=== PATIENT | female | born 1955 | race Caucasian/White ===

== ENCOUNTER 2019-11-02 04:28 | Emergency (ER) | payer BC, OTHER ==
--- OUTSIDE RECORDS SUMMARY | 2019-11-02 04:30 | XMS REPORT ---
:1955 [facility] Address [address] [place] [address] Care Team Providers Name Role Phone Unavailable Unavailable Unavailable Problems This patient has no known problems. Allergies, Adverse Reactions, Alerts This patient has no known allergies or adverse reactions. Medications This patient has no known medications. Results Test Description Test Time Test Comments Text Results Atomic Results Result Comments SCR MAMM BILATERAL TANIYA 2019-05-29 12:49:08 - SCR MAMM BILATERAL TANIYA CAD CAD JUAN DIGITALBILATERAL DIGITAL SCREENING MAMMOGRAM 3D/2D WITH CAD: 05/28/2019CLINICAL: Asymptomatic. Digital breast tomosynthesis was performed in addition to routine CC and MLO views. Current mammographic images were evaluated by either a Sarbari M-Vu or a [employer] ImageChecker CAD (computer aided detection system). No prior exams were available for comparison. The tissue of both breasts is predominantly fatty. No suspicious mass, architectural distortion, malignant type calcification, or lymph node abnormality detected. IMPRESSION: NEGATIVEThere is no mammographic evidence of malignancy. Resume annual screening mammography in one year. Trinidad Cruz M.D. yageronimo/penrad:05/29/2019 12:49:08 Wardrobe Image Consultant: Brandi Dumont MM, [facility] Mammographyletter sent: BIRADS 1-2 Normal Mammogram BI-RADS: 1 Negative SCR MAMM BILATERAL TANIYA 2019-05-29 12:49:08 AMENDMENT: 07/11/2019 Gonzales Tadeo M.D. Prior exams received and reviewed. There is no significant change.Amended BI-RADS: 1 Negative letter sent: Normal Comparison Completed
[2019-11-02] MEDS ORDERED: NA CHLORIDE 0.9% 1,000 ML ONE (04:47)
[2019-11-02 05:00] LABS: Absolute Lymphocytes (CBC) 2.1 K/uL (0.7-4.9); Basophils % 1.2 % (0-1.3); Hematocrit 40.7 % (36.0-45.0); Lymphocytes % 28.3 % (15.3-44.8); MPV 9.5 fL (7.6-11.3); RBC Red Blood Cell Count 4.77 M/uL (3.86-4.86)
[2019-11-02 05:17] LABS: ALT/SGPT 25 U/L (12-78); AST/SGOT 19 U/L (15-37); Albumin 3.5 g/dL (3.4-5.0); Alkaline Phosphatase 87 U/L (45-117); BUN Blood Urea Nitrogen 22 mg/dL (7-18); Bicarbonate 27 mmol/L (21-32); Bilirubin Direct < 0.1 mg/dL (0-0.2); Bilirubin Total 0.2 mg/dL (0.2-1.0); Glucose Level 111 mg/dL (74-106); Magnesium 2.1 mg/dL (1.8-2.4); NT PRO-BNP 61 pg/mL (<125); Potassium 3.9 mmol/L (3.5-5.1); Protein, Total 7.5 g/dL (6.4-8.2); Sodium Level 141 mmol/L (136-145); Troponin (Emerg Dept Use Only) < 0.02 ng/mL (0.0-0.045)
[2019-11-02] MEDS ORDERED: LORazepam 2 MG/ML VIAL ONE ×2 (06:01→06:20)
--- NOTE | 2019-11-02 07:12 | RAD REPORT ---
EXAM DESCRIPTION: CT - Chest For Pe Angio - 11/02/2019 6:49 am CLINICAL HISTORY: sob COMPARISON: None. TECHNIQUE: Dynamically enhanced axial 3 mm thick images of the chest were obtained during administra tion of <100> mL Isovue 370 IV contrast. Coronal and oblique reconstruction images were generated and reviewed. Exam utilizes a protocol for optimal evaluation of pulmonary arterial tree. Maximum intensity projections 3D imaging was utilized All CT scans are performed using dose optimization technique as appropriate and may include automated exposure control or mA/KV adjustment according to patient size. FINDINGS: A pulmonary embolus is not seen. A thoracic aortic aneurysm is not noted. A pleural effusion is not seen. A pericardial effusion is not seen. A lung consolidation is not present. IMPRESSION: Negative for a pulmonary embolism.
--- NOTE | 2019-11-02 07:24 | EDPHYS ---
Physician Documentation [facility] Name: Mary Berry Age: 64 yrs Sex: Female : 1955 Arrival Date: 11/02/2019 Time: 04:30 Bed 6 Private MD: ED Physician Doroteo Rodriguez HPI: 11/01 04:40 This 64 yrs old Female presents to ER via Unassigned with complaints of alex Shortness Of Breath. 04:40 The patient has shortness of breath at rest, with light activity. Onset: The alex symptoms/episode began/occurred just prior to arrival. Duration: The symptoms are continuous, but are steadily getting better. The patient's shortness of breath has no apparent modifying factors. Associated signs and symptoms: The patient has no apparent associated signs or symptoms. Severity of symptoms: At their worst the symptoms were moderate in the emergency department the symptoms have improved moderately. The patient has not experienced similar symptoms in the past. Historical: - Allergies: 05:04 Sulfa (Sulfonamide Antibiotics); - Home Meds: 05:04 Famciclovir Oral [Active]; meloxicam oral oral [Active]; Acetaminophen-Codeine Oral ah [Active]; levothyroxine oral [Active]; loratadine oral oral [Active]; - PMHx: 05:04 Hypothyroidism; ah - PSHx: 05:04 Cholecystectomy; Appendectomy; Tonsillectomy; ah - Immunization history:: Pneumococcal vaccine is not up to date, Flu vaccine is not up to date. It has been more than one year since last vaccine. - Social history:: Smoking status: Patient denies any tobacco usage or history of. Patient uses alcohol, on a daily basis. - Family history:: not pertinent. ROS: 04:41 Constitutional: Negative for fever, chills, and weight loss, Eyes: Negative for injury, alex pain, redness, and discharge, ENT: Negative for injury, pain, and discharge, Neck: Negative for injury, pain, and swelling, Cardiovascular: Negative for chest pain, palpitations, and edema, Abdomen/GI: Negative for abdominal pain, nausea, vomiting, diarrhea, and constipation, Back: Negative for injury and pain, : Negative for injury, bleeding, discharge, and swelling, MS/Extremity: Negative for injury and deformity, Skin: Negative for injury, rash, and discoloration, Neuro: Negative for headache, weakness, numbness, tingling, and seizure, Psych: Negative for depression, anxiety, suicide ideation, homicidal ideation, and hallucinations, Allergy/Immunology: Negative for hives, rash, and allergies, Endocrine: Negative for neck swelling, polydipsia, polyuria, polyphagia, and marked weight changes, Hematologic/Lymphatic: Negative for swollen nodes, abnormal bleeding, and unusual bruising. 04:41 Respiratory: Positive for shortness of breath, at rest. Exam: 04:41 Constitutional: This is a well developed, well nourished patient who is awake, alert, alex and in no acute distress. Head/Face: Normocephalic, atraumatic. Eyes: Pupils equal round and reactive to light, extra-ocular motions intact. Lids and lashes normal. Conjunctiva and sclera are non-icteric and not injected. Cornea within normal limits. Periorbital areas with no swelling, redness, or edema. ENT: Nares patent. No nasal discharge, no septal abnormalities noted. Tympanic membranes are normal and external auditory canals are clear. Oropharynx with no redness, swelling, or masses, exudates, or evidence of obstruction, uvula midline. Mucous membranes moist. Neck: Trachea midline, no thyromegaly or masses palpated, and no cervical lymphadenopathy. Supple, full range of motion without nuchal rigidity, or vertebral point tenderness. No Meningismus. Chest/axilla: Normal chest wall appearance and motion. Nontender with no deformity. No lesions are appreciated. Cardiovascular: Regular rate and rhythm with a normal S1 and S2. No gallops, murmurs, or rubs. Normal PMI, no JVD. No pulse deficits. Respiratory: Lungs have equal breath sounds bilaterally, clear to auscultation and percussion. No rales, rhonchi or wheezes noted. No increased work of breathing, no retractions or nasal flaring. Abdomen/GI: Soft, non-tender, with normal bowel sounds. No distension or tympany. No guarding or rebound. No evidence of tenderness throughout. Back: No spinal tenderness. No costovertebral tenderness. Full range of motion. Female : Normal external genitalia. Skin: Warm, dry with normal turgor. Normal color with no rashes, no lesions, and no evidence of cellulitis. MS/ Extremity: Pulses equal, no cyanosis. Neurovascular intact. Full, normal range of motion. Neuro: Awake and alert, GCS 15, oriented to person, place, time, and situation. Cranial nerves II-XII grossly intact. Motor strength 5/5 in all extremities. Sensory grossly intact. Cerebellar exam normal. Normal gait. Psych: Awake, alert, with orientation to person, place and time. Behavior, mood, and affect are within normal limits. 04:41 Musculoskeletal/extremity: DVT Exam: No signs of deep vein thrombosis. no pain, no swelling, no tenderness, negative Homans' sign noted on exam, no appreciated bluish discoloration, no erythema, no increased warmth. Vital Signs: 04:35 BP 157 / 66; Pulse 75; Resp 20; Temp 97.8; Pulse Ox 100% ; Weight 99.79 kg; Height 5 ah ft. 2 in. (157.48 cm); 04:45 BP 157 / 66; Pulse 75; Resp 16; Temp 97.8(O); Pulse Ox 100% on R/A; Weight 99.79 kg ao (R); Height 5 ft. 2 in. (157.48 cm) (R); Pain 0/10; 06:53 Pulse 70; Resp 16; Pulse Ox 94% ; ea 08:00 BP 148 / 71; Pulse 64; Resp 18; Pulse Ox 99% on R/A; Pain 0/10; em 04:45 Body Mass Index 40.24 (99.79 kg, 157.48 cm) ao MDM: 04:32 Patient medically screened. [facility] 04:43 Data reviewed: vital signs, nurses notes, lab test result(s), EKG, radiologic studies, alex plain films. 04 04:40 Order name: Basic Metabolic Panel; Complete Time: 05:43 [facility] 11/01 04:40 Order name: CBC with Diff; Complete Time: 05:04 [facility] 11/01 04:40 Order name: LFT's; Complete Time: 05:43 [facility] 11/01 04:40 Order name: Magnesium; Complete Time: 05:43 [facility] 11/01 04:40 Order name: NT PRO-BNP; Complete Time: 05:43 [facility] 11/01 04:40 Order name: PT-INR; Complete Time: 05:43 [facility] 11/01 04:40 Order name: Troponin (emerg Dept Use Only); Complete Time: 05:43 [facility] 11/01 04:40 Order name: XRAY Chest (1 view) [facility] 11/01 04:40 Order name: D-Dimer; Complete Time: 05:43 [facility] 11/01 05:05 Order name: US Extremity Venous W Compression Klever [facility] 11/01 05:05 Order name: CT Chest For PE Angio; Complete Time: 07:22 [facility] 11/01 04:40 Order name: EKG; Complete Time: 04:41 [facility] 11/01 04:40 Order name: Cardiac monitoring; Complete Time: 04:40 [facility] 11/01 04:40 Order name: EKG - Nurse/Tech; Complete Time: 04:52 [facility] 11/01 04:40 Order name: IV Saline Lock; Complete Time: 04:52 [facility] 11/01 04:40 Order name: Labs collected and sent; Complete Time: 04:52 [facility] 11/01 04:40 Order name: O2 Per Protocol; Complete Time: 04:40 [facility] 11/01 04:40 Order name: O2 Sat Monitoring; Complete Time: 04:41 [facility] 11/01 05:45 Order name: Oxygen; Complete Time: 05:53 [facility] Administered Medications: 04:52 Drug: NS 0.9% 1000 ml Route: IV; Rate: 75 ml/hr; Site: left antecubital; ea 08:13 Follow up: IV Status: Order to discontinue infusion; IV Intake: 100ml em 06:09 Drug: Ativan 1 mg Route: IVP; Site: left forearm; ao 07:04 Follow up: Response: No adverse reaction ah 06:18 Drug: Ativan 1 mg Route: IVP; Site: left femoral; ah 07:05 Follow up: Response: No adverse reaction Disposition: 11/02/19 07:23 Discharged to Home. Impression: Dyspnea, Anxiety disorder, unspecified. - Condition is Stable. - Discharge Instructions: Panic Attacks, Shortness of Breath, Shortness of Breath, [id number], Panic Attacks, [id number]. - Prescriptions for Xanax 0.5 mg Oral Tablet - take 1 tablet by ORAL route every 8 hours As needed; 20 tablet. - Medication Reconciliation Form, Thank You Letter, Antibiotic Education, Prescription Opioid Use form. - Follow up: Private Physician; When: 2 - 3 days; Reason: Recheck today's complaints, Continuance of care, Re-evaluation by your physician. Follow up: Freddie Mcarthur; When: 2 - 3 days; Reason: Recheck today's complaints, Continuance of care, Re-evaluation by your physician. - Problem is new. - Symptoms have improved. Signatures: Dispatcher [employer] Doroteo Harley MD MD cha Munoz, Edgar, RN RN Marcell Head, RN Enedina Hinds RN Chelsea Muñoz ea RN FRANCIE Corrections: (The following items were deleted from the chart) 08:14 07:23 11/02/2019 07:23 Discharged to Home. Impression: Dyspnea; Anxiety disorder, em unspecified. Condition is Stable. Discharge Instructions: Panic Attacks, Shortness of Breath, Shortness of Breath, [id number], Panic Attacks, [id number]. Prescriptions for Xanax 0.5 mg Oral Tablet - take 1 tablet by ORAL route every 8 hours As needed; 20 tablet. and Forms are Medication Reconciliation Form, Thank You Letter, Antibiotic Education, Prescription Opioid Use. Follow up: Private Physician; When: 2 - 3 days; Reason: Recheck today's complaints, Continuance of care, Re-evaluation by your physician. Follow up: Freddie Mcarthur; When: 2 - 3 days; Reason: Recheck today's complaints, Continuance of care, Re-evaluation by your physician. Problem is new. Symptoms have improved. alex
--- NOTE | 2019-11-02 07:24 | ER ---
Nurse's Notes [facility] Name: Mary Berry Age: 64 yrs Sex: Female : 1955 Arrival Date: 11/02/2019 Time: 04:30 Bed 6 Private MD: Diagnosis: Dyspnea;Anxiety disorder, unspecified Presentation: 11/01 04:35 Chief complaint: Patient states: she woke up feeling like she could not catch her breath. She states that she used her pro air inhaler with no relief. Vitals per EMS 125/80, 97%, 70, 97.8, BS 131. Coronavirus screen: Patient denies fever greater than 100.4F, cough, shortness of breath, or difficulty breathing. Proceed with normal triage process. Ebola Screen:. Initial Sepsis Screen: Does the patient meet any 2 criteria? No. Patient's initial sepsis screen is negative. Does the patient have a suspected source of infection? No. Patient's initial sepsis screen is negative. 04:35 Method Of Arrival: EMS: [facility] 04:35 Acuity: LYRIC 3 04:53 Ebola Screen: No symptoms or risks identified at this time. ea 04:53 Risk Assessment: Do you want to hurt yourself or someone else? Patient reports no ea desire to harm self or others. 05:10 Onset of symptoms was November 02, 2019 at 04:30. Triage Assessment: 05:11 General: Appears in no apparent distress. Behavior is cooperative. Respiratory: Reports shortness of breath Onset: The symptoms/episode began/occurred this morning, Historical: - Allergies: 05:04 Sulfa (Sulfonamide Antibiotics); - Home Meds: 05:04 Famciclovir Oral [Active]; meloxicam oral oral [Active]; Acetaminophen-Codeine Oral ah [Active]; levothyroxine oral [Active]; loratadine oral oral [Active]; - PMHx: 05:04 Hypothyroidism; - PSHx: 05:04 Cholecystectomy; Appendectomy; Tonsillectomy; - Immunization history:: Pneumococcal vaccine is not up to date, Flu vaccine is not up to date. It has been more than one year since last vaccine. - Social history:: Smoking status: Patient denies any tobacco usage or history of. Patient uses alcohol, on a daily basis. - Family history:: not pertinent. Screenin:53 Abuse screen: Denies threats or abuse. Nutritional screening: No deficits noted. ea Tuberculosis screening: No symptoms or risk factors identified. Fall Risk IV access (20 points). Assessment: 04:55 General: Appears in no apparent distress. uncomfortable, obese, well groomed, well ao developed, well nourished, Behavior is cooperative, appropriate for age, anxious. Pain: Denies pain. Neuro: Level of Consciousness is awake, alert, obeys commands, Oriented to person, place, time, situation, Appropriate for age Moves all extremities. Full function Speech is normal, Facial symmetry appears normal. Cardiovascular: Rhythm is regular. Respiratory: Airway is patent Respiratory effort is even, unlabored, Respiratory pattern is regular, symmetrical, Breath sounds are diminished bilaterally. GI: Abdomen is round obese. : No signs and/or symptoms were reported regarding the genitourinary system. EENT: No signs and/or symptoms were reported regarding the EENT system. Derm: Skin is intact, Skin is pink, warm \T\ dry. normal, Skin temperature is warm. Musculoskeletal: Circulation, motion, and sensation intact. Range of motion: intact in all extremities, Right leg shorter. 07:31 Reassessment: pending results from ultrasound to be discharged. em Vital Signs: 04:35 BP 157 / 66; Pulse 75; Resp 20; Temp 97.8; Pulse Ox 100% ; Weight 99.79 kg; Height 5 ah ft. 2 in. (157.48 cm); 04:45 BP 157 / 66; Pulse 75; Resp 16; Temp 97.8(O); Pulse Ox 100% on R/A; Weight 99.79 kg ao (R); Height 5 ft. 2 in. (157.48 cm) (R); Pain 0/10; 06:53 Pulse 70; Resp 16; Pulse Ox 94% ; ea 08:00 BP 148 / 71; Pulse 64; Resp 18; Pulse Ox 99% on R/A; Pain 0/10; em 04:45 Body Mass Index 40.24 (99.79 kg, 157.48 cm) ao ED Course: 04:30 Patient arrived in ED. cl3 04:32 Doroteo Rodriguez MD is Attending Physician. alex 04:39 Chelsea Quinonez, RN is Primary Nurse. ah 04:40 Inserted saline lock: 20 gauge in left antecubital area, using aseptic technique. Blood ea collected. 04:45 EKG done, by ED staff, reviewed by Doroteo Rodriguez MD. ea 04:53 Patient has correct armband on for positive identification. Placed in gown. Bed in low ea position. Call light in reach. Side rails up X2. 04:53 Arm band placed on right wrist. Patient placed in an exam room, on a stretcher, on ea pulse oximetry. 05:00 Triage completed. ah 05:04 Notified ED physician of a critical lab result(s). D-Dimer 557 Dr Rodriguez notified. bb 05:16 XRAY Chest (1 view) In Process Unspecified. EDMS 06:49 CT Chest For PE Angio In Process Unspecified. EDMS 07:23 Freddie Mcarthur MD is Referral Physician. alex 07:42 US Extremity Venous W Compression Klever In Process Unspecified. EDMS 08:12 No provider procedures requiring assistance completed. IV discontinued, intact, em bleeding controlled, No redness/swelling at site. Pressure dressing applied. Administered Medications: 04:52 Drug: NS 0.9% 1000 ml Route: IV; Rate: 75 ml/hr; Site: left antecubital; ea 08:13 Follow up: IV Status: Order to discontinue infusion; IV Intake: 100ml em 06:09 Drug: Ativan 1 mg Route: IVP; Site: left forearm; ao 07:04 Follow up: Response: No adverse reaction ah 06:18 Drug: Ativan 1 mg Route: IVP; Site: left femoral; ah 07:05 Follow up: Response: No adverse reaction ah Intake: 08:13 IV: 100ml; Total: 100ml. em Outcome: 07:23 Discharge ordered by . alex 08:12 Discharged to home via wheelchair. em 08:12 Condition: good 08:12 Discharge instructions given to patient, Instructed on discharge instructions, follow up and referral plans. medication usage, Demonstrated understanding of instructions, follow-up care, medications, Prescriptions given X 1. 08:14 Patient left the ED. em Signatures: Dispatcher [employer] Doroteo Harley MD MD cha Munoz, Edgar, RN RN Julienne Wilson RN Marcell Mchugh RN RN ao Antunez, Elena, RN RN ea Lewis, Charde cl3 Chelsea Quinonez, RN RN ah
[2019-11-02 08:24] VITALS: TEMP 97.8
[2019-11-02 08:28] VITALS: BP 148/71; O2SAT 99
--- NOTE | 2019-11-02 08:35 | RAD REPORT ---
EXAM DESCRIPTION: USExtrem Venous W Compress Bil11/02/2019 7:41 am CLINICAL HISTORY: Leg pain COMPARISON: none FINDINGS: The common femoral, superficial femoral, popliteal and posterior tibial veins bilaterally are compressible and demonstrate augmentation. Doppler demonstrates good flow. IMPRESSION: No evidence of deep venous thrombosis involving either lower extremity.
--- NOTE | 2019-11-02 09:08 | RAD REPORT ---
EXAM DESCRIPTION: Sandro Single View11/02/2019 5:16 am CLINICAL HISTORY: Shortness of breath COMPARISON: none FINDINGS: The lungs appear clear of acute infiltrate. The heart is normal size IMPRESSION: No acute abnormalities displayed
--- NOTE | 2019-11-02 14:37 | EKG ---
Test Date: 2019-11-02 Test Time: 04:45:46 Load Out Supervisor: KAITLYN MEASUREMENT RESULTS: Intervals: Rate: 77 OR: 134 QRSD: 128 QT: 432 QTc: 488 Laie: P: 52 OR: 134 QRS: 67 T: 40 INTERPRETIVE STATEMENTS: Normal sinus rhythm Nonspecific intraventricular block Abnormal ECG No previous ECG available for comparison Electronically Signed On 11-02-19 14:36:41 CDT by Freddie Mcarthur
== END 2019-11-02 08:14 | disposition home or self-care (01) ==
LOC: ER 04:28
DX: F41.9 Anxiety disorder, unspecified (principal); E03.9 Hypothyroidism, unspecified; Z88.2 Allergy status to sulfonamides
CPT/HCPCS: 96361; 93005; 85025; 80048; 36415; 83735; 85610; 85379; 80076; 84484; 83880; 71275; 71045; 93970; 96374; 99284; Q9967; J7030

== ENCOUNTER 2024-08-22 20:07 | Emergency (ER) | payer OTHER ==
[2024-08-22] MEDS ORDERED: ONDANSETRON 4 MG/2 ML VIAL ONE (20:31)
[2024-08-22] MEDS ORDERED: MORPHINE 4 MG/ML SYR ONE (20:31)
[2024-08-22 20:51] LABS: Absolute Basophils 0.1 K/uL (0-0.5); Absolute Eosinophils 0.1 K/uL (0-0.5); Absolute Lymphocytes (CBC) 0.3 K/uL (0.7-4.9); Absolute Monocytes 1.4 K/uL (0.1-1.3); Absolute Neutrophil 9.1 K/uL (1.8-8.0); Basophils % 0.8 % (0-1.3); Eosinophils % 0.5 % (0-4.4); Hematocrit 36.6 % (36.0-45.0); Hemoglobin 12.3 g/dL (12.0-15.0); Lymphocytes % 2.7 % (15.3-44.8); MCH 28.5 pg (27.0-35.0); MCHC 33.7 g/dL (32.0-36.0); MCV 84.6 fL (80-100); MPV 9.3 fL (7.6-11.3); Monocytes % 12.8 % (3.3-12.3); Neutrophils % 83.2 % (41.7-73.7); Platelets 233 thou/uL (152-406); RBC Red Blood Cell Count 4.32 M/uL (3.86-4.86); Red Cell Distribution Width 13.8 % (12.1-15.2)
[2024-08-22 20:53] LABS: PT Prothrombin Time 12.3 SECONDS (9.4-12.5); Protime INR 1.17
[2024-08-22 21:08] LABS: ALT/SGPT 31 U/L (13-56); AST/SGOT 25 U/L (15-37); Albumin 3.2 g/dL (3.4-5.0); Albumin/Globulin Ratio 0.8 (1.1-1.8); Alkaline Phosphatase 77 U/L (45-117); Anion Gap 10.6 mEq/L (5.0-15.0); BUN Blood Urea Nitrogen 14 mg/dL (7-18); Bicarbonate 25 mEq/L (21-32); Bilirubin Total 0.4 mg/dL (0.2-1.0); Glomerular Filtration Rate 94 ml/min (=/>90); Glucose Level 112 mg/dL (74-106); Magnesium 1.8 mg/dL (1.6-2.4); NT PRO-BNP 346 pg/mL (<125); Potassium 3.6 mEq/L (3.5-5.1); Protein, Total 7.2 g/dL (6.4-8.2); Sodium Level 136 mEq/L (136-145); Troponin High Sensitivity 4.3 pg/mL (<58.9)
--- NOTE | 2024-08-22 21:10 | RAD REPORT ---
EXAMINATION: ONE VIEW CHEST XR CLINICAL INDICATION: CHEST PAIN TECHNIQUE: Frontal chest projection is submitted. Examination is limited by patient positioning and t echnique. COMPARISON: 11/02/2019 FINDINGS: The lungs are well inflated and clear. The heart is normal in size. No displaced fractures identified . IMPRESSION: No acute intrathoracic abnormalities.
[2024-08-22 21:13] LABS: Bilirubin Direct < 0.2 mg/dL (0-0.2); Bilirubin Indirect, Calculated 0.2 mg/dL (0.2-0.8)
[2024-08-22] MEDS ORDERED: NA CHLORIDE 0.9% 1,000 ML ONE (21:13)
[2024-08-22 21:15] LABS: SARS-CoV-2 Antigen CONTROL BLUE LINE VIS/BG OK; SARS-CoV-2 Antigen Rapid Res Negative (Negative)
[2024-08-22] MEDS ORDERED: ALBUTEROL 2.5 MG/3 ML NEB SOL ONE (21:37)
--- NOTE | 2024-08-22 22:19 | RAD REPORT ---
EXAM: CT CHEST, ABDOMEN AND PELVIS WITH CONTRAST CLINICAL INDICATION: COUGH TECHNIQUE: CT chest, abdomen and pelvis was performed, following the administration of contrast, as p er department protocol. Axial, sagittal and coronal reconstructions were obtained. One or more of the following dose reduction techniques were used: Automated exposure control, adjustment of the mA a nd/or kV according to patient size, and/or iterative reconstruction. Unless otherwise specified, incidental findings do not require dedicated imaging follow-up. COMPARISON: No prior exam. FINDINGS: LUNGS: No evidence of airspace or interstitial process. No nodules. PLEURA: No pleural effusion. No pneumothorax. MEDIASTINUM AND LYMPH NODES: No mediastinal mass or fluid collection. Normal size mediastinal, hilar, and axillary lymph nodes. Postsurgical changes at the gastroesophageal junction. OSSEOUS STRUCTURES AND CHEST WALL: Intact. LIVER: Mild diffuse fatty liver. Small benign cysts anterior right lobe of liver. Cholecystomy clips. PANCREAS: No mass, ductal dilation, or carol ann-pancreatic fluid. SPLEEN: Several indeterminate small low-density lesions are present. ADRENALS: Normal; no mass. KIDNEYS: Normal size and contour. No hydronephrosis. URINARY BLADDER: Normal contour. GASTROINTESTINAL TRACT: No bowel obstruction, free air, significant free fluid or abscess. Prominen t sigmoid diverticulosis coli without diverticulitis. Small right flank hernia containing fat and a portion of the colon. No obstruction. APPENDIX: Appendix surgically absent. LYMPH NODES: No lymphadenopathy. MUSCULOSKELETAL: Moderate lumbar degenerative changes. 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 IMPRESSION: No acute or significant abnormalities seen in the chest, abdomen or pelvis. Moderate sigmoid diverticulosis coli without diverticulitis. Small flank hernia as described on the right.
[2024-08-22] MEDS ORDERED: IBUPROFEN 200 MG TAB PO ONE (23:23)
[2024-08-22] MEDS ORDERED: AZITHROMYCIN 250 MG TAB ONE (23:23)
[2024-08-22] MEDS ORDERED: HYDROCODONE/APAP 5/325 MG TAB ONE (23:24)
[2024-08-22] MEDS ORDERED: IBUPROFEN 400 MG TAB ONE (23:24)
[2024-08-22] MEDS ORDERED: ONDANSETRON 4 MG (ODT) TAB ONE (23:24)
--- NOTE | 2024-08-22 23:24 | ER ---
Nurse's Notes [facility] Name: Mary Berry Age: 69 yrs Sex: Female : 1955 Arrival Date: 08/22/2024 Time: 20:07 Bed 8 Private MD: Diagnosis: Acute pharyngitis, unspecified;Cough;Acute upper respiratory infection, unspecified Presentation: 08/22 20:18 Chief complaint: Patient states: I started feeling bad yesterday, I have acough with bm8 mucus and nausea but no vomitting. Coronavirus screen: Vaccine status: Patient reports receiving the 2nd dose of the covid vaccine. Ebola Screen: Patient negative for fever greater than or equal to 101.5 degrees Fahrenheit, and additional compatible Ebola Virus Disease symptoms Patient denies exposure to infectious person. Patient denies travel to an Ebola-affected area in the 21 days before illness onset. No symptoms or risks identified at this time. Initial Sepsis Screen: Does the patient meet any 2 criteria? No. Patient's initial sepsis screen is negative. Does the patient have a suspected source of infection? No. Patient's initial sepsis screen is negative. Risk Assessment: Do you want to hurt yourself or someone else? Patient reports no desire to harm self or others. Onset of symptoms was August 21, 2024 at 12:00. 20:18 Method Of Arrival: EMS: [facility] bm8 20:18 Acuity: LYRIC 3 bm8 Triage Assessment: 20:20 General: Appears in no apparent distress. comfortable, Behavior is calm, cooperative, bm8 appropriate for age. Pain: Complains of pain in generalized body Pain currently is 8 out of 10 on a pain scale. EENT: No deficits noted. No signs and/or symptoms were reported regarding the EENT system. Neuro: No deficits noted. Level of Consciousness is awake, alert, obeys commands, Oriented to person, place, time, situation, Appropriate for age. Cardiovascular: Denies chest pain, Heart tones S1 S2 present Capillary refill < 3 seconds in bilateral fingers Patient's skin is warm and dry. Rhythm is sinus rhythm. Respiratory: Reports shortness of breath cough that is pain with cough Airway is patent Trachea midline Respiratory effort is even, unlabored, Respiratory pattern is regular, symmetrical, Breath sounds are diminished in right posterior middle lobe and right posterior lower lobe Onset: The symptoms/episode began/occurred yesterday, the patient has mild shortness of breath. GI: No deficits noted. No signs and/or symptoms were reported involving the gastrointestinal system. : No deficits noted. No signs and/or symptoms were reported regarding the genitourinary system. Derm: No deficits noted. No signs and/or symptoms reported regarding the dermatologic system. Musculoskeletal: No deficits noted. No signs and/or symptoms reported regarding the musculoskeletal system. Historical: - Allergies: 20:20 Sulfa (Sulfonamide Antibiotics); bm8 - Home Meds: 20:20 levothyroxine oral [Active]; bm8 - PMHx: 20:20 Hypothyroidism; bm8 - PSHx: 20:20 None; bm8 - Immunization history:: Adult Immunizations up to date. - Infectious Disease History:: Denies. - Social history:: Smoking status: Patient denies any tobacco usage or history of. Patient uses alcohol, street drugs, gummies. - Family history:: not pertinent. Screenin:46 [facility] ED Fall Risk Assessment (Adult) History of falling in the last 3 months, bm8 including since admission No falls in past 3 months (0 pts) Confusion or Disorientation No (0 pts) Intoxicated or Sedated No (0 pts) Impaired Gait No (0 pts) Mobility Assist Device Used No (0 pt) Altered Elimination No (0 pt) Score/Fall Risk Level 0 - 2 = Low Risk Oriented to surroundings, Maintained a safe environment, Educated pt \T\ family on fall prevention, incl call for assistance when getting out of bed, Assessed \T\ reinforced patient's understanding of fall precautions, Hourly rounding (assess needs \T\ fall precautionary measures) done, Used ambulatory aids as needed (educated on \T\ assisted with), Used gait belt as appropriate. Abuse screen: Denies threats or abuse. Nutritional screening: No deficits noted. Tuberculosis screening: No symptoms or risk factors identified. Assessment: 20:46 Reassessment: pt placed on 3L NC O2 sat improved to 96%. General: Appears in no bm8 apparent distress. comfortable, Behavior is calm, cooperative, appropriate for age. Pain: Complains of pain in right posterior lower lobe and right posterior middle lobe Pain currently is 6 out of 10 on a pain scale. Neuro: No deficits noted. Cardiovascular: Heart tones S1 S2 present Capillary refill < 3 seconds in bilateral fingers Patient's skin is warm and dry. Respiratory: Airway is patent Respiratory effort is even, unlabored, Respiratory pattern is regular, symmetrical, Breath sounds are diminished in right posterior middle lobe and right posterior lower lobe the patient has mild shortness of breath. GI: No signs and/or symptoms were reported involving the gastrointestinal system. : No signs and/or symptoms were reported regarding the genitourinary system. EENT: No signs and/or symptoms were reported regarding the EENT system. Derm: No signs and/or symptoms reported regarding the dermatologic system. Musculoskeletal: No signs and/or symptoms reported regarding the musculoskeletal system. 22:40 Reassessment: Patient appears in no apparent distress at this time. Patient and/or bm8 family updated on plan of care and expected duration. Pain level reassessed. Patient is alert, oriented x 3, equal unlabored respirations, skin warm/dry/pink. Cardiovascular: Denies chest pain, shortness of breath. Respiratory: Airway is patent Respiratory effort is even, unlabored, Respiratory pattern is regular, symmetrical, Breath sounds are clear bilaterally. Denies shortness of breath but is unable to maintain O2 saturation over 94% on RA. Pt has been placed on 2 L NC. 22:56 Reassessment: Pt's O2 turned off and coached on deep slow breathing. PT is now bm8 maintaing O\T\ saturation greater than 94% on RA. Patient denies pain at this time. Patient states feeling better. Patient states symptoms have improved. Vital Signs: 20:18 BP 152 / 75; Pulse 79; Resp 18; Temp 98.5; Pulse Ox 92% ; Weight 90.72 kg; Height 5 ft. bm8 1 in. ; Pain 8/10; 20:46 BP 135 / 75; Pulse 84; Resp 20; Temp 98.5; Pulse Ox 96% on 3 lpm NC; Pain 6/10; bm8 22:40 BP 146 / 48; Pulse 94; Resp 21; Temp 98.5; Pulse Ox 95% on 2 lpm NC; Pain 0/10; bm8 22:59 BP 118 / 64; Pulse 94; Resp 19; Temp 98.9; Pulse Ox 98% on R/A; Pain 0/10; bm8 20:18 Body Mass Index 37.79 (90.72 kg, 154.94 cm) bm8 20:18 Pain Scale: Adult bm8 20:46 Pain Scale: Adult bm8 22:40 Pain Scale: Adult bm8 22:59 Pain Scale: Adult bm8 Dvaid Coma Score: 20:46 Eye Response: spontaneous(4). Motor Response: obeys commands(6). Verbal Response: bm8 oriented(5). Total: 15. 22:40 Eye Response: spontaneous(4). Motor Response: obeys commands(6). Verbal Response: bm8 oriented(5). Total: 15. 22:59 Eye Response: spontaneous(4). Motor Response: obeys commands(6). Verbal Response: bm8 oriented(5). Total: 15. 08/23 03:57 Eye Response: spontaneous(4). Motor Response: obeys commands(6). Verbal Response: sp4 oriented(5). Total: 15. ED Course: 08/22 20:18 Patient arrived in ED. bm8 20:20 Triage completed. bm8 20:20 Arm band placed on right wrist. bm8 20:23 Colton Wick MD is Attending Physician. sp4 20:30 Stanley Johns, RN is Primary Nurse. bm8 20:46 Patient has correct armband on for positive identification. Bed in low position. Call bm8 light in reach. Side rails up X2. Adult w/ patient. Client placed on continuous cardiac and pulse oximetry monitoring. NIBP monitoring applied. iron melter on. Pulse ox on. NIBP on. Door closed. Noise minimized. Warm blanket given. Pillow given. Verbal reassurance given. Head of bed elevated. 20:46 No provider procedures requiring assistance completed. Initial lab(s) drawn, by ronny cano sent to lab. EKG done, by ED staff, reviewed by Colton Wick MD. Inserted saline lock: 20 gauge in right antecubital area, using aseptic technique. Blood collected. Flushed with 10 mL NS. Patient maintains SpO2 saturation greater than 95% on room air. Response to oxygen therapy: symptoms improved. 21:08 XRAY Chest (1 view) In Process Unspecified. EDMS 22:04 CT Chest, Abdomen, Pelvis - W/Contrast In Process Unspecified. EDMS 22:40 Oxygen administration via nasal cannula \T\ 2L/min Response to oxygen therapy: symptoms bm8 improved. 23:34 Provided Education on: post er care. bm8 23:34 IV discontinued, intact, bleeding controlled, No redness/swelling at site. Pressure bm8 dressing applied. Administered Medications: 20:46 Drug: morphine IVP or IV 4 mg IVP once over 4 mins Route: IVP; Infused Over: 4 mins; bm8 Site: right antecubital; 21:49 Follow up: Response: No adverse reaction bm8 20:46 Drug: Ondansetron IVP 4 mg IVP once; over 2 minutes Route: IVP; Site: right antecubital;bm8 21:49 Follow up: Response: No adverse reaction bm8 21:17 Drug: NS 0.9% IV 1000 ml IV at 1 bolus Per protocol; to be given as a bolus over 60 vc1 minutes Route: IV; Rate: 1 bolus; Site: right antecubital; 22:42 Follow up: Response: No adverse reaction; IV Status: Completed infusion; IV Intake: bm8 1000ml 21:48 Drug: Albuterol Inhalation 2.5 mg Inhalation once Route: Inhalation; bm8 22:42 Follow up: Response: No adverse reaction bm8 23:25 Drug: AZITHromycin PO 500 mg PO once Route: PO; bm8 23:35 Follow up: Response: No adverse reaction bm8 23:25 Drug: Ondansetron PO 4 mg PO once Route: PO; bm8 23:35 Follow up: Response: No adverse reaction bm8 23:25 Drug: HYDROcodone-acetaminophen PO 5 mg-325 mg 2 tabs PO once Route: PO; bm8 23:35 Follow up: Response: No adverse reaction bm8 23:25 Drug: Ibuprofen PO 600 mg PO once Route: PO; bm8 23:34 Follow up: Response: No adverse reaction bm8 Medication: 20:46 VIS not applicable for this client. bm8 Intake: 22:42 IV: 1000ml; Total: 1000ml. bm8 Outcome: 23:23 Discharge ordered by . sp4 23:34 Discharged to home via wheelchair, bm8 23:34 Condition: stable 23:34 Discharge instructions given to patient, family, Instructed on discharge instructions, follow up and referral plans. no drinking with medication, no driving heavy equipment, medication usage, safety practices, Demonstrated understanding of instructions, follow-up care, medications, Prescriptions given X x6 23:36 Patient left the ED. bm8 Signatures: Dispatcher [employer] EDMS Italia Shelton RN RN vc1 Colton Wick MD MD sp4 Stanley Johns RN RN bm8
--- NOTE | 2024-08-22 23:25 | EDPHYS ---
Physician Documentation [facility] Name: Mary Berry Age: 69 yrs Sex: Female : 1955 Arrival Date: 08/22/2024 Time: 20:07 Bed 8 Private MD: ED Physician Colton Wick HPI: 08/22 20:23 This 69 yrs old Female presents to ER via EMS with complaints of Productive sp4 Cough, Nausea. 23:22 History of Proximal femoral focal deficiency (PFFD). sp4 08/23 03:57 Patient with history of PFFD of the right femur and history of hypothyroidism presents sp4 with productive cough, 3 weeks of respiratory illness, nausea vomiting today associated shortness of breath and bodyaches. Patient states that she was [facility] 1-1/2 weeks ago and given steroid shot also prescription for prednisone and inhaler. This did improve his symptoms but now she is feeling worse.. Historical: - Allergies: 08/22 20:20 Sulfa (Sulfonamide Antibiotics); bm8 - Home Meds: 20:20 levothyroxine oral [Active]; bm8 - PMHx: 20:20 Hypothyroidism; bm8 - PSHx: 20:20 None; bm8 - Immunization history:: Adult Immunizations up to date. - Infectious Disease History:: Denies. - Social history:: Smoking status: Patient denies any tobacco usage or history of. Patient uses alcohol, street drugs, gummies. - Family history:: not pertinent. ROS: 08/23 03:57 Constitutional: Positive body aches, positive chills, positive nausea, positive sp4 vomiting, positive cough, positive clear sputum All other systems are negative, Exam: 08/22 23:19 Constitutional: This is a well developed, well nourished patient who is awake, alert, sp4 and in no acute distress. Head/Face: Normocephalic, atraumatic. Eyes: Pupils equal round and reactive to light, extra-ocular motions intact. Lids and lashes normal. Conjunctiva and sclera are not injected. Cornea within normal limits. Periorbital areas with no swelling, redness, or edema. ENT: Nares patent. No nasal discharge, no septal abnormalities noted. Tympanic membranes are normal and external auditory canals are clear. Oropharynx with no redness, swelling, or masses, exudates, or evidence of obstruction, uvula midline. Mucous membranes moist. Neck: Trachea midline, no thyromegaly or masses palpated, and no cervical lymphadenopathy. Supple, full range of motion without nuchal rigidity, or vertebral point tenderness. Chest/axilla: Normal chest wall appearance and motion. Nontender with no deformity. No lesions are appreciated. Cardiovascular: Regular rate and rhythm with a normal S1 and S2. No gallops, murmurs, or rubs. Normal PMI, no JVD. No pulse deficits. Respiratory: Lungs have equal breath sounds bilaterally, clear to auscultation and percussion. No rales, rhonchi or wheezes noted. No increased work of breathing, no retractions or nasal flaring. Abdomen/GI: Soft, with normal bowel sounds. No distension or tympany. No guarding or rebound. No evidence of tenderness throughout. Back: No spinal tenderness. No costovertebral tenderness. Skin: Warm, dry with normal turgor. Normal color with no rashes, no lesions, and no evidence of cellulitis. MS/ Extremity: Pulses equal, no cyanosis. Neurovascular intact. Full, normal range of motion. Neuro: Awake and alert, GCS 15, oriented to person, place, time, and situation. Cranial nerves II-XII grossly intact. Motor strength 5/5 in all extremities. Sensory grossly intact. Psych: Awake, alert, with orientation to person, place and time. Behavior, mood, and affect are within normal limits 08/23 03:57 ECG was reviewed by the Attending Physician. EKG at 2040 normal sinus rhythm rate 77. sp4 Right bundle branch block. Otherwise normal Vital Signs: 08/22 20:18 BP 152 / 75; Pulse 79; Resp 18; Temp 98.5; Pulse Ox 92% ; Weight 90.72 kg; Height 5 ft. bm8 1 in. ; Pain 8/10; 20:46 BP 135 / 75; Pulse 84; Resp 20; Temp 98.5; Pulse Ox 96% on 3 lpm NC; Pain 6/10; bm8 22:40 BP 146 / 48; Pulse 94; Resp 21; Temp 98.5; Pulse Ox 95% on 2 lpm NC; Pain 0/10; bm8 22:59 BP 118 / 64; Pulse 94; Resp 19; Temp 98.9; Pulse Ox 98% on R/A; Pain 0/10; bm8 20:18 Body Mass Index 37.79 (90.72 kg, 154.94 cm) bm8 20:18 Pain Scale: Adult bm8 20:46 Pain Scale: Adult bm8 22:40 Pain Scale: Adult bm8 22:59 Pain Scale: Adult bm8 David Coma Score: 20:46 Eye Response: spontaneous(4). Motor Response: obeys commands(6). Verbal Response: bm8 oriented(5). Total: 15. 22:40 Eye Response: spontaneous(4). Motor Response: obeys commands(6). Verbal Response: bm8 oriented(5). Total: 15. 22:59 Eye Response: spontaneous(4). Motor Response: obeys commands(6). Verbal Response: bm8 oriented(5). Total: 15. 08/23 03:57 Eye Response: spontaneous(4). Motor Response: obeys commands(6). Verbal Response: sp4 oriented(5). Total: 15. MDM: 08/22 20:26 Medical Screening Exam initiated sp4 20:41 Differential Diagnosis: Bronchitis Influenza Upper Respiratory Infection Sinusitis sp4 Pharyngitis Otitis Media. Consideration of Admission/Observation Escalation of care including admission/observation considered. 23:10 ED course: EXAM: CT CHEST, ABDOMEN AND PELVIS WITH CONTRAST CLINICAL INDICATION: COUGH sp4 TECHNIQUE: CT chest, abdomen and pelvis was performed, following the administration of contrast, as per department protocol. Axial, sagittal and coronal reconstructions were obtained. One or more of the following dose reduction techniques were used: Automated exposure control, adjustment of the mA and/or kV according to patient size, and/or iterative reconstruction. Unless otherwise specified, incidental findings do not require dedicated imaging follow-up. COMPARISON: No prior exam. FINDINGS: LUNGS: No evidence of airspace or interstitial process. No nodules. PLEURA: No pleural effusion. No pneumothorax. MEDIASTINUM AND LYMPH NODES: No mediastinal mass or fluid collection. Normal size mediastinal, hilar, and axillary lymph nodes. Postsurgical changes at the gastroesophageal junction. OSSEOUS STRUCTURES AND CHEST WALL: Intact. LIVER: Mild diffuse fatty liver. Small benign cysts anterior right lobe of liver. Cholecystomy clips. PANCREAS: No mass, ductal dilation, or carol ann-pancreatic fluid. SPLEEN: Several indeterminate small low-density lesions are present. ADRENALS: Normal; no mass. KIDNEYS: Normal size and contour. No hydronephrosis. URINARYBLADDER: Normal contour. GASTROINTESTINAL TRACT: No bowel obstruction, free air, significant free fluid or abscess. Prominent sigmoid diverticulosis coli without diverticulitis. Small right flank hernia containing fat and a portion of the colon. No obstruction. APPENDIX: Appendix surgically absent. LYMPH NODES: No lymphadenopathy. MUSCULOSKELETAL: Moderate lumbar degenerative changes. 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 IMPRESSION: No acute or significant abnormalities seen in the chest, abdomen or pelvis. Moderate sigmoid diverticulosis coli without diverticulitis. Small flank hernia as described on the right. . 23:11 ED course: EXAMINATION: ONE VIEW CHEST XR CLINICAL INDICATION: CHEST PAIN TECHNIQUE: sp4 Frontal chest projection is submitted. Examination is limited by patient positioning and technique. COMPARISON: 11/02/2019 FINDINGS: The lungs are well inflated and clear. The heart is normal in size. No displaced fractures identified. IMPRESSION: No acute intrathoracic abnormalities. 23:19 Data reviewed: vital signs, nurses notes, EMS record, old medical records, lab test sp4 result(s), EKG, radiologic studies. 08/22 20:27 Order name: Influenza Screen (a \T\ B); Complete Time: 21:17 [facility] 08/22 20:27 Order name: SARS RAPID; Complete Time: : 4 08/22 20:27 Order name: Basic Metabolic Panel; Complete Time: : 4 08/22 20:27 Order name: CBC with Diff; Complete Time: : [facility] 08/22 20:27 Order name: LFT's; Complete Time: : 4 08/22 20:27 Order name: Magnesium; Complete Time: : 4 08/22 20:27 Order name: NT PRO-BNP; Complete Time: :17 4 08/22 20:27 Order name: PT-INR; Complete Time: : 4 08/22 20:27 Order name: Troponin HS; Complete Time: : 4 08/22 20:27 Order name: XRAY Chest (1 view); Complete Time: : [facility] 08/22 21:17 Order name: CT Chest, Abdomen, Pelvis - W/Contrast; Complete Time: 23:09 4 08/22 20:27 Order name: Cardiac monitoring; Complete Time: 20: sp4 08/22 20:27 Order name: EKG - Nurse/Tech; Complete Time: sp4 08/22 20: Order name: IV Saline Lock; Complete Time: : sp4 08/22 20: Order name: Labs collected and sent; Complete Time: : sp4 08/22 20: Order name: O2 Per Protocol; Complete Time: sp4 08/22 20: Order name: O2 Sat Monitoring; Complete Time: : EC: Rate is 77 beats/min. Rhythm is regular, Normal Sinus Rhythm. QRS [place] is Normal. MS sp4 interval is normal. QRS interval is prolonged. QT interval is normal. No Q waves. T waves are Normal. No ST changes noted. Clinical impression: No evidence of ischemia. Interpreted by me. Reviewed by me. Administered Medications: 20:46 Drug: morphine IVP or IV 4 mg IVP once over 4 mins Route: IVP; Infused Over: 4 mins; bm8 Site: right antecubital; 21:49 Follow up: Response: No adverse reaction bm8 20:46 Drug: Ondansetron IVP 4 mg IVP once; over 2 minutes Route: IVP; Site: right antecubital;bm8 21:49 Follow up: Response: No adverse reaction bm8 21:17 Drug: NS 0.9% IV 1000 ml IV at 1 bolus Per protocol; to be given as a bolus over 60 vc1 minutes Route: IV; Rate: 1 bolus; Site: right antecubital; 22:42 Follow up: Response: No adverse reaction; IV Status: Completed infusion; IV Intake: bm8 1000ml 21:48 Drug: Albuterol Inhalation 2.5 mg Inhalation once Route: Inhalation; bm8 22:42 Follow up: Response: No adverse reaction bm8 23:25 Drug: AZITHromycin PO 500 mg PO once Route: PO; bm8 23:35 Follow up: Response: No adverse reaction bm8 23:25 Drug: Ondansetron PO 4 mg PO once Route: PO; bm8 23:35 Follow up: Response: No adverse reaction bm8 23:25 Drug: HYDROcodone-acetaminophen PO 5 mg-325 mg 2 tabs PO once Route: PO; bm8 23:35 Follow up: Response: No adverse reaction bm8 23:25 Drug: Ibuprofen PO 600 mg PO once Route: PO; bm8 23:34 Follow up: Response: No adverse reaction bm8 Disposition Summary: 08/22/24 23:23 Discharge Ordered Notes: Location: Home sp4 Problem: new sp4 Symptoms: have improved sp4 Condition: Stable sp4 Diagnosis - Acute pharyngitis, unspecified sp4 - Cough sp4 - Acute upper respiratory infection, unspecified sp4 Followup: sp4 - With: Private Physician - When: 7 - 10 days - Reason: Recheck today's complaints Discharge Instructions: - Discharge Summary Sheet sp4 - Upper Respiratory Infection, Adult sp4 Forms: - Patient Portal Instructions sp4 - Work release form bm8 Prescriptions: - Nebulizer with Adult Mask - 0 Dispense One Nebulizer with adult mask, use as directed; ; Refills: 0, sp4 Product Selection Permitted - acetaminophen-codeine 300-60 mg Oral tablet - take 1 tablet ORAL route every 8 hours PRN pain; 20 tablet; Refills: 0, Product sp4 Selection Permitted - dextromethorphan-guaifenesin 20-400 mg Oral tablet - take 1 tablet ORAL route every 4 hours PRN cough; 40 tablet; Refills: 0, sp4 Product Selection Permitted - Ibuprofen 600 mg Oral Tablet - take 1 tablet ORAL route every 6 hours As needed take with food; 30 tablet; sp4 Refills: 0, Product Selection Permitted - Albuterol Sulfate 2.5 mg /3 mL (0.083 %) Inhalation Solution for Nebulization - inhale 1 unit NEBULIZATION route every 4 hours As needed PRN dyspnea; 50 unit; sp4 Refills: 0, Product Selection Permitted - Zithromax Z-Valentin 250 mg Oral Tablet - take 1 tablet ORAL route as directed for 5 days Day 1 - take two (2) tablets sp4 one time. Day 2, 3, 4 , 5 take one (1) tablet once daily.; 6 tablet; Refills: 0, Product Selection Permitted Signatures: Dispatcher [employer] Italia Barber RN RN vc1 Colton Wick MD MD sp4 Stanley Johns RN RN bm8 Corrections: (The following items were deleted from the chart) 20:27 20:27 BASIC METABOLIC PANEL+C.LAB.BRZ ordered. EDMS EDMS 20:27 20:27 CBC+H.LAB.BRZ ordered. EDMS EDMS 20: 20:27 HEPATIC FUNCTION+C.LAB.BRZ ordered. EDMS EDMS 20: 20:27 MAGNESIUM+C.LAB.BRZ ordered. EDMS EDMS 20: 20:27 PROBNP+C.LAB.BRZ ordered. EDMS EDMS 20: 20:27 PROTIME (+INR)+COAG.LAB.BRZ ordered. EDMS EDMS 20: 20:27 Troponin High Sensitivity+C.LAB.BRZ ordered. EDMS EDMS 20: 20:28 Chest Single View+RAD.RAD.BRZ ordered. EDMS EDMS 21:17 21:17 Chest Abdomen Pelvis W Con+CT.RAD.BRZ ordered. EDMS EDMS
[2024-08-23 03:56] VITALS: BP 118/64; TEMP 98.9; O2SAT 98
== END 2024-08-22 23:36 | disposition home or self-care (01) ==
LOC: ER 20:07
DX: J06.9 Acute upper respiratory infection, unspecified (principal); J02.9 Acute pharyngitis, unspecified; Z11.52 Encounter for screening for COVID-19
CPT/HCPCS: 85025; 80048; 36415; 83735; 85610; 80076; 84484; 83880; 87804 ×2; 71260; 74177; 71045; 87811; Q9967; Q0162; J7613; J2405; J7030